=== PATIENT | male | born 1980 | race Caucasian/White ===

== ENCOUNTER 2018-03-27 20:39 | Emergency (ER) | payer OTHER ==
[~2018-03-27] VITALS: Ht 175.3 cm; Wt 136.1 kg
[~2018-03-27 20:39] MED LIST: ASPIR 8181 M1 PO; ATIVAN1 MG PO; AVELOX 400 MG400 M1 PO; COZAAR 50 MG TA50 M2 PO; ERYTHROMYCIN E3.5 G3 OP; FLEXERIL PO; GEMFIBROZIL 60600 MG PO; GLUCOTROL5 MG PO; GLYXAMBI 25 MG1 EACH PO; LIPITOR 20 MG T20 M1 PO; MEDROLDOSEPACK PO; NOHOMEMEDICATIONS; NORCO 5-325 TA1 EACH PO; OMEGA-31000 M1 PO; PERCOCET 5-3251 EACH PO; PRILOSEC20 MG PO; TYLENOL325 MG PO; VICODIN ES TAB1 EACH PO
[2018-03-27] MEDS ORDERED: AMARYL4 MG PO (20:50)
[2018-03-27] MEDS ORDERED: SINGULAIR 10 MG10 M1 PO (20:50)
[2018-03-27] MEDS ORDERED: FENOFIBRATE160 MG PO (20:50)
[2018-03-27] MEDS ORDERED: JARDIANCE25 MG PO (20:51)
[2018-03-27] MEDS ORDERED: SIMVASTATIN40 MG PO (20:51)
[2018-03-27 20:58] LABS: URINE BILIRUBIN NEGATIVE (Negative); URINE BLOOD NEGATIVE (Negative); URINE CLARITY CLEAR; URINE COLOR YELLOW; URINE GLUCOSE-RANDOM 3+ (Negative); URINE KETONES NEGATIVE (Negative); URINE LEUKOCYTES-REFLEX NEGATIVE (Negative); URINE NITRITE-REFLEX NEGATIVE (Negative); URINE PROTEIN NEGATIVE (Negative); URINE UROBILINOGEN 0.2 E.U./dl (0.2-1.0)
[2018-03-27 21:08] LABS: ABSOLUTE BASOPHILS 0.1 thou/uL (0.0-0.2); ABSOLUTE MONOCYTES 0.8 thou/uL (0.0-1.2); BASOPHILS 0.5 %; EOSINOPHILS 0.5 %; HEMATOCRIT 41.7 % (42.0-52.0); HEMOGLOBIN 14.2 gm/dL (14.0-18.0); LYMPHOCYTES 20.4 %; MCH 28.5 pg (26.0-34.0); MCHC 34.1 g/dL (28.0-37.0); MCV 83.7 fL (80.0-100.0); MONOCYTES 8.2 %; MPV 8.1 fl. (7.2-11.1); NUCLEATED RBCS 0 /100WBC; PLATELET COUNT* 224 thou/uL (150-400); POLYS 70.4 %; RBC 4.99 mil/uL (4.50-6.00); RDW-CV 15.8 % (10.5-14.5)
[2018-03-27 21:17] LABS: CALCIUM 8.8 mg/dL (8.5-10.1); CREATININE 0.9 mg/dL (0.6-1.3); POTASSIUM 3.7 mmol/L (3.5-5.1)
[2018-03-27 21:21] LABS: ALBUMIN 3.4 g/dL (3.4-5.0); TOTAL BILIRUBIN 0.4 mg/dL (<0.1-1.0); TOTAL PROTEIN 7.7 g/dL (6.4-8.2)
[2018-03-28] MEDS ORDERED: ZOFRAN4 MG PO (00:23)
[2018-03-28] MEDS ORDERED: NORCO 5-325 TA1 EACH PO (00:23)
[2018-03-28] MEDS ORDERED: CIPRO250 M2 PO (00:23)
[2018-03-28 00:32] VITALS: BP 98/50
== END 2018-03-28 00:33 | disposition home or self-care (01) ==
LOC: M.ERS 20:39
PROVIDERS: Nurse Practitioner Family
DX: R19.7 Diarrhea, unspecified (principal); R10.10 Upper abdominal pain, unspecified; E11.9 Type 2 diabetes mellitus without complications; F17.210 Nicotine dependence, cigarettes, uncomplicated; Z90.49 Acquired absence of other specified parts of digestive tract; Z88.6 Allergy status to analgesic agent; Z88.8 Allergy status to other drugs, medicaments and biological substances